=== PATIENT | female | born 1995 | race Caucasian/White ===

== ENCOUNTER 2020-05-14 13:03 | Emergency (ER) | payer BC, MEDICAID, OTHER ==
[2020-05-14] MEDS ORDERED: Lidocaine 2% with EPINEPHrine 1:100,000 20 ML MDV INJECT ONE ×2 (13:20→14:37)
[2020-05-14] MEDS ORDERED: Bupivacaine 0.5% 30 ML SDV INJECT PRN ×2 (13:20→14:37)
[2020-05-14] MEDS ORDERED: Ondansetron 4 MG/2 ML SDV IV ONE (13:26)
[2020-05-14] MEDS ORDERED: Morphine 4 MG/ML Syringe IVPUSH ONE (13:27)
[2020-05-14] MEDS ORDERED: Sodium Chloride 0.9% 10 ML Syringe FLUSH PRN (13:27)
[2020-05-14] MEDS ORDERED: Clindamycin Phosphate in D5W 600 MG in Premix Bag 1 BAG IV ONE ×2 (13:28)
--- NOTE | 2020-05-14 13:36 | EDM.PDOC ---
ED HPI GENERAL MEDICAL PROBLEM - General Chief Complaint: General Stated Complaint: TOOTH PAIN Time Seen by Provider: 05/14/20 13:15 Source of Information: Reports: Patient History Limitations: Reports: No Limitations - History of Present Illness INITIAL COMMENTS - FREE TEXT/NARRATIVE: Patient comes emergency department today with complaints of concerns for a dental abscess. For the past 2 months she has had pain to the right lower jaw. She has not seen a dentist. She has not been on any antibiotics. Yesterday she noticed that she had quite a bit of swelling on the lateral aspect of the angle of her jaw as well as under her jaw. Today she notes that it is difficult for her to open her mouth. She has no difficulty swallowing. No difficulty breathing. She does have home drainage actually coming from the right lower molar. Is a very foul-smelling purulent discharge she reports. No fever no chills. No nausea no vomiting. No cough or congestion. No Covid exposure no Covid symptoms. Treatments HATCH TENDER: Reports: NSAIDS Right Face/Facial Pain Score (Numeric/FACES): 7 - Related Data Allergies Allergy/AdvReac Type Severity Reaction Status Date / Time amoxicillin Allergy Rash Verified 05/14/20 13:22 Penicillins Allergy Hives Verified 05/14/20 13:22 Sulfa (Sulfonamide Allergy Rash Verified 05/14/20 13:22 Antibiotics) Past Medical History - Past Surgical History HEENT Surgical History: Reports: Oral Surgery Social & Family History - Caffeine Use Caffeine Use: Reports: Coffee, Soda ED ROS GENERAL - Review of Systems Review Of Systems: Comprehensive ROS is negative, except as noted in HPI. ED EXAM, GENERAL - Physical Exam Exam: See Below Exam Limited By: No Limitations General Appearance: Alert, WD/WN, No Apparent Distress Ears: Normal External Exam, Normal TMs Nose: Normal Inspection, Normal Mucosa Throat/Mouth: Normal Inspection, Normal Lips, Normal Gums, Normal Oropharynx, Normal Voice, Other (No drainage or erythema or swelling in the oropharynx. She does have some trismus. The area under the tongue is soft not erythematous or tender. There is no stridor there is no occlusion of the pharynx. There is no drooling.) Head: Facial Swelling (Below the right angle of jaw there is an aproximate grape sized lump that is quite tender to touch. ) Neck: Other (See above just below the right angle of the jaw. ) Respiratory/Chest: No Respiratory Distress, Lungs Clear, Chest Non-Tender Cardiovascular: Normal Peripheral Pulses, Regular Rate, Rhythm Neurological: Alert, Oriented Psychiatric: Normal Affect, Normal Mood Skin Exam: Warm, Dry, Intact, Normal Color Course - Vital Signs Last Recorded V/S: Last Vital Signs Temp 99.1 F 05/14/20 13:15 Pulse 90 05/14/20 13:15 Resp 16 05/14/20 13:15 BP 136/86 05/14/20 13:15 Pulse Ox 99 05/14/20 13:15 - Orders/Labs/Meds Orders: Active Orders 24 hr Category Date Time Status Peripheral IV Insertion Adult [OM.PC] Stat Oth 05/14/20 13:26 Ordered Labs: Laboratory Tests 05/14/20 05/14/20 05/14/20 Range/Units 13:33 13:33 13:33 WBC 6.0 (4.0-10.0) x10^3/uL RBC 4.20 (4.00-5.50) x10^6/uL Hgb 13.0 (12.0-16.0) g/dL Hct 39.6 (33.0-47.0) % MCV 94.3 H (78.0-93.0) fL MCH 31.0 (26.0-32.0) pg MCHC 32.8 (32.0-36.0) g/dL RDW Coeff of Perfecto 13.5 (10.0-15.0) % Plt Count 215 (130-400) x10^3/uL Neut % (Auto) 57.8 (50.0-80.0) % Lymph % (Auto) 19.5 L (25.0-50.0) % Ray % (Auto) 21.5 H (2.0-11.0) % Eos % (Auto) 0.7 (0.0-4.0) % Baso % (Auto) 0.5 (0.2-1.2) % Sodium 141 (136-145) mmol/L Potassium 4.2 (3.5-5.1) mmol/L Chloride 104 (98-107) mmol/L Carbon Dioxide 29 (21-32) mmol/L Anion Gap 12.2 (5-15) mmol/L BUN 4 L (7-18) mg/dL Creatinine 0.6 (0.55-1.02) mg/dL Est Cr Clr Drug Dosing 134.18 mL/min Estimated GFR (MDRD) > 60 Glucose 79 (74-106) mg/dL Lactic Acid 1.1 (0.4-2.0) mmol/L Calcium 8.7 (8.5-10.1) mg/dL Meds: Medications Discontinued Medications Generic Name Dose Route Start Last Admin Trade Name Freq PRN Reason Stop Dose Admin Hydrocodone Bitart/Acetaminophen 1 packet 05/14/20 14:31 05/14/20 14:41 Take Home: Acetam/Hydrocodon 325-5 Mg, 5 Pack PO 05/14/20 14:32 1 packet ONETIME ONE Administration Bupivacaine HCl 30 ml 05/14/20 13:20 Marcaine 0.5% INJECT ASDIRECTED PRN Other Bupivacaine HCl 30 ml 05/14/20 14:37 05/14/20 14:58 Marcaine 0.5% INJECT 4 ml ASDIRECTED PRN Administration Other Clindamycin HCl 1 packet 05/14/20 14:26 05/14/20 14:41 Take Home: Clindamycin Hcl 150 Mg, 6 Cap Pack PO 05/14/20 14:27 1 packet ONETIME ONE Administration Clindamycin Phosphate 600 mg/ 50 mls @ 150 mls/hr 05/14/20 13:28 05/14/20 14:01 Premix IV 05/14/20 13:47 150 mls/hr ONETIME ONE Administration Lidocaine/Epinephrine 20 ml 05/14/20 13:20 Xylocaine 2% With Epinephrine 1:100,000 INJECT 05/14/20 13:21 ONETIME ONE Lidocaine/Epinephrine 20 ml 05/14/20 14:37 05/14/20 14:58 Xylocaine 2% With Epinephrine 1:100,000 INJECT 05/14/20 14:38 4 ml ONETIME ONE Administration Morphine Sulfate 4 mg 05/14/20 13:27 05/14/20 13:40 Morphine IVPUSH 05/14/20 13:28 4 mg ONETIME ONE Administration Ondansetron HCl 4 mg 05/14/20 13:26 05/14/20 13:38 Zofran IV 05/14/20 13:27 4 mg ONETIME ONE Administration Sodium Chloride 10 ml 05/14/20 13:27 Saline Flush FLUSH ASDIRECTED PRN Keep Vein Open - Radiology Interpretation Free Text/Narrative:: CT scan of the soft tissue with contrast per radiology shows stranding in the right submandibular space right of midline with reactive lymph nodes. Findings are most consistent with cellulitis. No evidence of abscess. Sparing of the sublingual space. - Re-Assessments/Exams Free Text/Narrative Re-Assessment/Exam: 05/14/20 14:22 Initially was given an IV for IV contrast for the CT scan of the soft tissues of the neck. Clindamycin 600 mg IV piggyback. Zofran 4 mg IV push prophylactic nausea. Morphine 4 mg IV push for pain. 05/14/20 14:23 Labs with a WBC of 6.0 hemoglobin of 13 and normal platelet count. Lactic acid normal at 1.1. CMP is unremarkable as well. I reviewed the CT scan of the soft tissue of the neck with contrast that this is clearly just a cellulitis most likely caused from dentition. There is no sign of abscess. There is no airway compromise. I did offer a dental block for pain relief. After risks and benefits were verbally explained to the patient. She gave consent. 2% lidocaine with epinephrine and 0.5% bupivacaine was mixed in a 50-50 fashion. After the landmarks were identified for an inferior right-sided alveolar block. Approximately 6 mils of the above solution was instilled in the area of the right inferior alveolar block. With negative blood withdrawn prior to instillation. Tolerated the procedure well. No bleeding. She had quite a bit of improvement of the pain on her face. No complications. I discussed with her that if she had any change in her ability to swallow breathe or her area of induration is getting worse she is to recheck. She needs to see a dentition as soon as possible. She is comfortable with this plan and her questions were answered. Departure - Departure Time of Disposition: 14:24 Disposition: Home, Self-Care 01 Clinical Impression: Cellulitis of submandibular region - Discharge Information Instructions: Antibiotic Medicine, Adult, [id number], Cellulitis, Adult, [id number], Probiotics Referrals: Juani Oliveira MD [Primary Care Provider] - Forms: ED Department Discharge Additional Instructions: Tylenol and or Ibuprofen as needed for pain fever discomfort. Push oral fluids over the next few days. If pain not controlled with above. [place] 1 tablet every 4-6 hrs as needed for pain. Caution sedation. Do not take with Tylenol as this medication has Tylenol in it. Starter pack given in the ED. Start a pro-biotic OTC as well as yogurt with live cultures due to the anti- biotic. Clindamycin 300mg by mouth 4 times a day for the next 7 days. Starter pack given in the ED and RX sent to the pharmacy. See a dentist [place]. Recheck in the ED if new or worsening symptoms especially if unable to swallow drooling or difficulty breathing. Sepsis Event Note (ED) - Evaluation Sepsis Screening Result: No Definite Risk - Focused Exam Vital Signs: Vital Signs Temp Pulse Resp BP Pulse Ox 05/14/20 13:15 99.1 F 90 16 136/86 99 - My Orders Last 24 Hours: My Active Orders 05/14/20 13:26 Peripheral IV Insertion Adult [OM.PC] Stat - Assessment/Plan Last 24 Hours: My Active Orders 05/14/20 13:26 Peripheral IV Insertion Adult [OM.PC] Stat
[2020-05-14 13:53] LABS: ANION GAP 12.2 mmol/L (5-15); CHLORIDE,CL 104 mmol/L (98-107); SODIUM,NA 141 mmol/L (136-145)
--- NOTE | 2020-05-14 14:22 | CT ---
[id number] CT/CT Neck Soft Tissue W IV Exam: CT Neck Soft Tissue W IV Indication:RL JAW ABSCESS, QUESTION OSTEO. Comparison: No prior imaging for comparison. Discussion: Edema in the soft tissues of the submandibular region on the right. There are numerous reactive appearing level 2 lymph nodes, largest measuring 9 mm in short axis diameter. No abscess. No evidence of osteomyelitis. There is tearing of the sublingual space. Mucosal the nasopharynx, oropharynx, hypopharynx are unremarkable. Parotid, some annular, and thyroid glands are unremarkable. Impression: Stranding in the submandibular space right of midline with reactive lymph nodes. Findings are most consistent with cellulitis. No evidence of abscess. Sparing of the sublingual space. No other significant abnormality. Reinaldo Sen MD 05/14/20 0596 Thank you for allowing us to participate in the care of your patient.
[2020-05-14] MEDS ORDERED: Take Home: Clindamycin HCl 150 MG Cap, 6 Cap Pack PO ONE (14:26)
[2020-05-14] MEDS ORDERED: Take Home: Acetaminophen/HYDROcodone 325-5 MG, 5 Tab Pack PO ONE (14:31)
== END 2020-05-14 14:55 | disposition home or self-care (01) ==
LOC: VM.ED 13:03
DX: K12.2 Cellulitis and abscess of mouth (principal); Z88.0 Allergy status to penicillin; Z88.2 Allergy status to sulfonamides
CPT/HCPCS: 64400; 70491; 80048; 83605; 85025; 96365; 96375; 99283-25; 99284; A9270-GY; J2270; J2405; J3490

== ENCOUNTER 2020-09-27 08:13 | Inpatient (IN) | payer MEDICAID ==
[2020-09-27] MEDS ORDERED: Lactated Ringers 1,000 ML IV ONE (08:28)
[2020-09-27] MEDS ORDERED: Ondansetron 4 MG/2 ML SDV IVPUSH ONE (08:28)
--- NOTE | 2020-09-27 08:30 | EDM.PDOC ---
ED HPI GENERAL MEDICAL PROBLEM - General Stated Complaint: chest pain Time Seen by Provider: 09/27/20 08:19 Source of Information: Reports: Patient - History of Present Illness INITIAL COMMENTS - FREE TEXT/NARRATIVE: Rebecca is a 25 y/o female who is brought to the ER via POV by her dad with complaints of pain in her chest and nausea & vomiting. She has not felt well and was sick all day yesterday. Cannot really eat or drink anything. Cannot remember when she last voided. Has had a few small episodes of diarrhea. She has [place] out [place] the [place] in the [place]. No fever. She has not taken anything. Denies recent ETOH use. Middle Chest Pain Score (Numeric/FACES): 7 - Related Data Allergies Allergy/AdvReac Type Severity Reaction Status Date / Time amoxicillin Allergy Rash Verified 09/27/20 08:56 Penicillins Allergy Hives Verified 09/27/20 08:56 Sulfa (Sulfonamide Allergy Rash Verified 09/27/20 08:56 Antibiotics) Home Meds: Home Meds hydrOXYzine HCL [Hydroxyzine HCl] 25 mg PO Q6H PRN 09/27/20 [History] Past Medical History - Past Surgical History HEENT Surgical History: Reports: Oral Surgery Social & Family History - Caffeine Use Caffeine Use: Reports: Coffee, Soda Review of Systems - Review of Systems Review Of Systems: See Below Constitutional: Reports: Weakness Eyes: Reports: No Symptoms Ears: Reports: No Symptoms Nose: Reports: No Symptoms Mouth/Throat: Reports: No Symptoms Respiratory: Reports: No Symptoms Cardiovascular: Reports: Chest Pain GI/Abdominal: Reports: Decreased Appetite, Diarrhea, Nausea Genitourinary: Reports: No Symptoms Musculoskeletal: Reports: No Symptoms Skin: Reports: No Symptoms Neurological: Reports: Headache Psychiatric: Reports: No Symptoms ED EXAM, GENERAL - Physical Exam Exam: See Below General Appearance: Alert, WD/WN, No Apparent Distress (Adult female, appears to not feel well.) Eye Exam: Bilateral Eye: PERRL Ears: Normal Canal, Hearing Grossly Normal Nose: Normal Inspection Throat/Mouth: Normal Inspection, Normal Oropharynx, Normal Voice Head: Atraumatic, Normocephalic Neck: Normal Inspection Respiratory/Chest: No Respiratory Distress, Lungs Clear, Chest Non-Tender Cardiovascular: Normal Peripheral Pulses, Regular Rate, Rhythm GI/Abdominal: Normal Bowel Sounds, Soft (Female) Exam: Deferred Rectal (Female) Exam: Deferred Back Exam: Normal Inspection Extremities: Normal Inspection, Normal Range of Motion, Normal Capillary Refill Neurological: Alert, Oriented, CN II-XII Intact Psychiatric: Normal Affect, Normal Mood Skin Exam: Warm, Dry, Intact, Normal Color #1 Interpretation EKG Date: 09/27/20 Time: 08:34 Rhythm: NSR Rate (Beats/Min): 71 [place]: Normal P-Wave: Present QRS: Normal ST-T: Normal QT: Normal EKG Interpretation Comments: Normal Sinus Rhythm Course - Vital Signs Text/Narrative:: 0819 The patient was seen by the AUTO DEALER. Labs ordered. EKG done. She was given a liter of LR and Zofran 4mg IV. 0930 Nausea better. Labs reviewed. Note WBC=13.7, Neuts=83.8%, BUN=5, Middleware Solutions Architect=1.1, Gsvqeed=530, Mg=1.3, T Bili=1.5 AST=97, Fdjyqff=771, Endcgr=6147. Patient now complains of generalized abdominal pain and admits heavy ETOH use 2 days ago. Unable to void. Will continue IV fluids, given pain meds, and obtain CT Abd/Pelvis. 1115 CT results reviewed. Notes Acute Pancreatitis. IV fluids continued. Patient made NPO. Still having abdominal discomfort, but nausea better. Morphine 2mg IVP ordered. 1125 [facility] contacted and case presented. Dr Reddy consulted regarding this patient. Advises admission here due to high census at [facility]. Dr Juani Oliveira contacted since she is patient's PCP and will plan to admit her here to Acute Care. Last Recorded V/S: Last Vital Signs Temp 35.9 C L 09/27/20 08:14 Pulse 68 09/27/20 10:08 Resp 16 09/27/20 10:53 BP 136/97 H 09/27/20 10:53 Pulse Ox 100 09/27/20 10:53 - Orders/Labs/Meds Orders: Active Orders 24 hr Category Date Time Status EKG Documentation Completion [RC] STAT Care 09/27/20 08:27 Active Sodium Chloride 0.9% [Normal Saline] 1,000 ml Med 09/27/20 11:15 Active IV ASDIRECTED Sodium Chloride 0.9% [Saline Flush] Med 09/27/20 08:26 Active 10 ml FLUSH ASDIRECTED PRN Saline Lock Insert [OM.PC] Stat Oth 09/27/20 08:27 Ordered Medication Orders Sodium Chloride (Normal Saline) 1,000 mls @ 150 mls/hr IV ASDIRECTED LEONILA Last Admin: 09/27/20 11:18 Dose: 150 mls/hr Documented by: LAURIE Sodium Chloride (Sodium Chloride 0.9% 10 Ml Syringe) 10 ml FLUSH ASDIRECTED PRN PRN Reason: Keep Vein Open Labs: Laboratory Tests 09/27/20 09/27/20 09/27/20 Range/Units 08:38 08:38 10:00 WBC 13.7 H (4.0-10.0) x10^3/uL RBC 3.60 L (4.00-5.50) x10^6/uL Hgb 13.2 (12.0-16.0) g/dL Hct 36.1 (33.0-47.0) % MCV 100.3 H D (78.0-93.0) fL MCH 36.7 H (26.0-32.0) pg MCHC 36.6 H (32.0-36.0) g/dL RDW Coeff of Perfecto 14.8 (10.0-15.0) % Plt Count 350 D (130-400) x10^3/uL Neut % (Auto) 83.8 H (50.0-80.0) % Lymph % (Auto) 6.4 L (25.0-50.0) % [place] % (Auto) 9.6 (2.0-11.0) % Eos % (Auto) 0.0 (0.0-4.0) % Baso % (Auto) 0.2 (0.2-1.2) % Sodium 138 (136-145) mmol/L Potassium 3.6 (3.5-5.1) mmol/L Chloride 100 (98-107) mmol/L Carbon Dioxide 23 (21-32) mmol/L Anion Gap 18.6 H (5-15) mmol/L BUN 5 L (7-18) mg/dL Creatinine 1.1 H (0.55-1.02) mg/dL Est Cr Clr Drug Dosing TNP Estimated GFR (MDRD) > 60 Glucose 145 H (70-99) mg/dL Calcium 8.6 (8.5-10.1) mg/dL Corrected Calcium 8.6 (8.5-10.1) mg/dL Magnesium 1.3 L (1.8-2.4) mg/dL Total Bilirubin 1.5 H (0.2-1.0) mg/dL AST 97 H (15-37) U/L ALT 50 (14-59) U/L Alkaline Phosphatase 127 H (46-116) U/L Troponin I High Sens 6 (<=51) ng/L C-Reactive Protein 1.0 H (<=0.9) mg/dL Total Protein 7.3 (6.4-8.2) g/dL Albumin 4.0 (3.4-5.0) g/dL Globulin 3.3 Albumin/Globulin Ratio 1.21 Amylase 179 H (25-115) U/L Lipase 2949 H (73-393) U/L Urine Color Noemi H (YELLOW) Urine Appearance Cloudy H (CLEAR) Urine pH 6.5 (5.0-8.0) Ur Specific [place] 1.025 Urine Protein 100 H (NEGATIVE) mg/dL Urine Glucose (UA) Negative (NEGATIVE) mg/dL Urine Ketones 40 H (NEGATIVE) mg/dL Urine Occult Blood Negative (NEGATIVE) Urine Nitrite Negative (NEGATIVE) Urine Bilirubin Small H (NEGATIVE) Urine Urobilinogen 0.2 (0.2) EU/dL Ur Leukocyte Esterase Negative (NEGATIVE) U Hyaline Cast (Auto) Few Urine RBC 0-5 (NOT SEEN) /HPF Urine WBC 0-5 (NOT SEEN) /HPF Ur Squamous Epith Cells Many H (NOT SEEN) /HPF Ur Transition Epith Cell Occasional H (NOT SEEN) /HPF Amorphous Sediment Moderate Urine Bacteria Few H (NOT SEEN) /HPF Granular Casts (Auto) Moderate Urine Mucus Many H (NOT SEEN) /LPF Urine HCG, Qual (NEGATIVE) 09/27/20 Range/Units 10:00 WBC (4.0-10.0) x10^3/uL RBC (4.00-5.50) x10^6/uL Hgb (12.0-16.0) g/dL Hct (33.0-47.0) % MCV (78.0-93.0) fL MCH (26.0-32.0) pg MCHC (32.0-36.0) g/dL RDW Coeff of Perfecto (10.0-15.0) % Plt Count (130-400) x10^3/uL Neut % (Auto) (50.0-80.0) % Lymph % (Auto) (25.0-50.0) % [place] % (Auto) (2.0-11.0) % Eos % (Auto) (0.0-4.0) % Baso % (Auto) (0.2-1.2) % Sodium (136-145) mmol/L Potassium (3.5-5.1) mmol/L Chloride (98-107) mmol/L Carbon Dioxide (21-32) mmol/L Anion Gap (5-15) mmol/L BUN (7-18) mg/dL Creatinine (0.55-1.02) mg/dL Est Cr Clr Drug Dosing Estimated GFR (MDRD) Glucose (70-99) mg/dL Calcium (8.5-10.1) mg/dL Corrected Calcium (8.5-10.1) mg/dL Magnesium (1.8-2.4) mg/dL Total Bilirubin (0.2-1.0) mg/dL AST (15-37) U/L ALT (14-59) U/L Alkaline Phosphatase (46-116) U/L Troponin I High Sens (<=51) ng/L C-Reactive Protein (<=0.9) mg/dL Total Protein (6.4-8.2) g/dL Albumin (3.4-5.0) g/dL Globulin Albumin/Globulin Ratio Amylase (25-115) U/L Lipase (73-393) U/L Urine Color (YELLOW) Urine Appearance (CLEAR) Urine pH (5.0-8.0) Ur Specific [place] Urine Protein (NEGATIVE) mg/dL Urine Glucose (UA) (NEGATIVE) mg/dL Urine Ketones (NEGATIVE) mg/dL Urine Occult Blood (NEGATIVE) Urine Nitrite (NEGATIVE) Urine Bilirubin (NEGATIVE) Urine Urobilinogen (0.2) EU/dL Ur Leukocyte Esterase (NEGATIVE) U Hyaline Cast (Auto) Urine RBC (NOT SEEN) /HPF Urine WBC (NOT SEEN) /HPF Ur Squamous Epith Cells (NOT SEEN) /HPF Ur Transition Epith Cell (NOT SEEN) /HPF Amorphous Sediment Urine Bacteria (NOT SEEN) /HPF Granular Casts (Auto) Urine Mucus (NOT SEEN) /LPF Urine HCG, Qual Negative (NEGATIVE) Meds: Medications Generic Name Dose Route Start Last Admin Trade Name Jonel PRN Reason Stop Dose Admin Sodium Chloride 1,000 mls @ 150 mls/hr 09/27/20 11:15 09/27/20 11:18 Normal Saline IV 150 mls/hr ASDIRECTED LEONILA Administration Sodium Chloride 10 ml 09/27/20 08:26 Sodium Chloride 0.9% 10 Ml Syringe FLUSH ASDIRECTED PRN Keep Vein Open Discontinued Medications Generic Name Dose Route Start Last Admin Trade Name Jonel PRN Reason Stop Dose Admin Fentanyl 100 mcg 09/27/20 09:33 09/27/20 10:06 Fentanyl 100 Mcg/2 Ml Sdv IVPUSH 09/27/20 09:34 100 mcg ONETIME ONE Administration Lactated Ringer's 1,000 mls @ 999 mls/hr 09/27/20 08:28 09/27/20 08:45 Ringers, Lactated IV 09/27/20 09:28 999 mls/hr ONETIME ONE Administration Sodium Chloride 1,000 mls @ 999 mls/hr 09/27/20 09:33 09/27/20 10:05 Normal Saline IV 09/27/20 10:33 999 mls/hr ONETIME ONE Administration Iopamidol 100 ml 09/27/20 09:40 09/27/20 10:06 Iopamidol 612 Mg/Ml 100 Ml Bottle IVPUSH 09/27/20 09:41 100 ml ONETIME ONE Administration Morphine Sulfate 2 mg 09/27/20 11:10 09/27/20 11:19 Morphine 2 Mg/Ml Syringe IVPUSH 09/27/20 11:11 2 mg ONETIME ONE Administration Ondansetron HCl 4 mg 09/27/20 08:28 09/27/20 08:46 Ondansetron 4 Mg/2 Ml Sdv IVPUSH 09/27/20 08:29 4 mg ONETIME ONE Administration - Radiology Interpretation Free Text/Narrative:: CT Abd/Pelvis W=Acute pancreatitis (See final report) Departure - Departure Time of Disposition: 11:56 Disposition: Admitted As Inpatient 66 Condition: Good Clinical Impression: Acute pancreatitis Qualifiers: Pancreatitis type: unspecified pancreatitis type Acute pancreatitis complication: unspecified Qualified Code(s): K85.90 - Acute pancreatitis without necrosis or infection, unspecified - Discharge Information Additional Instructions: -Dr Juani Oliveira will admit the patient to assume care and admit Sepsis Event Note (ED) - Focused Exam Vital Signs: Vital Signs Temp Pulse Resp BP Pulse Ox 09/27/20 10:53 16 136/97 H 100 09/27/20 10:08 68 14 161/108 H 98 09/27/20 08:14 35.9 C L 85 20 150/99 H 100 - My Orders Last 24 Hours: My Active Orders 09/27/20 08:26 Sodium Chloride 0.9% [Saline Flush] 10 ml FLUSH ASDIRECTED PRN 09/27/20 08:27 EKG Documentation Completion [RC] STAT Saline Lock Insert [OM.PC] Stat 09/27/20 11:15 Sodium Chloride 0.9% [Normal Saline] 1,000 ml IV ASDIRECTED - Assessment/Plan Last 24 Hours: My Active Orders 09/27/20 08:26 Sodium Chloride 0.9% [Saline Flush] 10 ml FLUSH ASDIRECTED PRN 09/27/20 08:27 EKG Documentation Completion [RC] STAT Saline Lock Insert [OM.PC] Stat 09/27/20 11:15 Sodium Chloride 0.9% [Normal Saline] 1,000 ml IV ASDIRECTED Assessment:: 1)Acute Pancreatitis Plan: -Admit to Acute Care
[2020-09-27 09:08] LABS: ANION GAP 18.6 mmol/L (5-15); CHLORIDE,CL 100 mmol/L (98-107); SODIUM,NA 138 mmol/L (136-145)
[2020-09-27] MEDS ORDERED: fentaNYL 100 MCG/2 ML SDV IVPUSH ONE (09:33)
[2020-09-27] MEDS ORDERED: Sodium Chloride 0.9% 1,000 ML IV ONE (09:33)
[2020-09-27] MEDS ORDERED: Iopamidol 612 MG/ML 100 ML Bottle IVPUSH ONE (09:40)
--- NOTE | 2020-09-27 11:02 | CT ---
[id number] CT/CT Abdomen Pelvis W IV EXAM: ABDOMEN AND PELVIS CT WITH CONTRAST INDICATION: ABDOMEN PAIN, ELEVATED LIPASE AND WBC. UPPER ABDOMEN COMPARISON: None. DISCUSSION: The pancreas is mildly edematous with surrounding infiltrating fluid in the retroperitoneum and extending into the omentum compatible with acute pancreatitis. There is a small volume of free fluid in the pelvis. No drainable fluid collection, necrosis or other evident complication. No biliary duct dilation is identified by CT. the gallbladder is normal in appearance. Ultrasound may be useful in the context of pancreatitis to further exclude cholelithiasis. The liver is enlarged measuring up to 22 cm craniocaudal and demonstrates at least moderate diffuse steatosis. There are a few areas of peripheral hypointensity within the medial segment of the left lobe along the falciform ligament and in the inferior right lobe which may represent focal severe fatty infiltration, but are nonspecific. A mild thick-walled appearance of the colon likely is from incomplete distention, but could be seen with early colitis. There are few scattered left ovarian follicles. The uterus and ovaries are otherwise unremarkable. 25 x 15 mm partially imaged cystic structure along the right aspect of the vaginal introitus. The spleen, adrenal glands, kidneys, small bowel, and the appendix are normal in appearance. No adenopathy or free air. Mild chronic appearing L1 compression fracture. The osseous structures are otherwise unremarkable. IMPRESSION: 1. Acute pancreatitis with infiltrating fluid/edema in the retroperitoneum. No drainable fluid collection, pancreatic necrosis or other evident complication. 2. The liver is enlarged and demonstrates moderate steatosis. Jesus Perry MD 09/27/20 1022 Thank you for allowing us to participate in the care of your patient.
[2020-09-27] MEDS ORDERED: Morphine 2 MG/ML SYRINGE IVPUSH ONE (11:10)
[2020-09-27] MEDS ORDERED: Sodium Chloride 0.9% 1,000 ML IV SCH (11:15)
--- NOTE | 2020-09-27 12:23 | PCM.HP.2 ---
H&P History of Present Illness - General Date of Service: 09/27/20 Admit Problem/Dx: Admission Diagnosis/Problem Admission Diagnosis/Problem Acute pancreatitis Source of Information: Patient History Limitations: Reports: No Limitations - History of Present Illness Initial Comments - Free Text/Narative: Ms. Canchola is a 25 yo female with PMH of bulimia, anxiety, and depression who presented to the ER for evaluation of abdominal pain that started last night. First she had some bloating yesterday, which is not uncommon for her. Then last night she started having epigastric pain radiating into the LUQ/left flank. Constant and worsening. Did not get much sleep at all. Also had nausea and vomiting associated with this. Has had chills but no fever. Also has diarrhea but that is also chronic for her. Has never had pancreatitis in the past. Denies any history of RUQ pain with eating or any s/s of gall bladder pathology. Did drink 2-3 shots and 2 beers 2 nights before this started. Drinks periodically, mainly on weekends. Does not drink alcohol daily. Denies any tobacco or illicit drug use. Has not had any recurrence of self-induced vomiting. She does feel the zofran helped with her nausea. The pain medication helped to make her feel relaxed but she is not sure if it actually helped her pain or not. Middle Chest Pain Score (Numeric/FACES): 7 - Related Data Allergies/Adverse Reactions: Allergies Allergy/AdvReac Type Severity Reaction Status Date / Time amoxicillin Allergy Rash Verified 09/27/20 08:56 Penicillins Allergy Hives Verified 09/27/20 08:56 Sulfa (Sulfonamide Allergy Rash Verified 09/27/20 08:56 Antibiotics) Home Medications: Home Meds hydrOXYzine HCL [Hydroxyzine HCl] 25 mg PO Q6H PRN 09/27/20 [History] Past Medical History HEENT History: Reports: None Cardiovascular History: Reports: None Respiratory History: Reports: None Gastrointestinal History: Reports: None Genitourinary History: Reports: None Musculoskeletal History: Reports: None Neurological History: Reports: None Psychiatric History: Reports: Anxiety, Depression, Eating Disorders Endocrine/Metabolic History: Reports: None Hematologic History: Reports: None Oncologic (Cancer) History: Reports: None - Past Surgical History HEENT Surgical History: Reports: Oral Surgery Social & Family History - Family History Cardiac: Reports: Hypertension Psychiatric: Reports: Anxiety - Tobacco Use Tobacco Use Status *Q: Never Tobacco User - Caffeine Use Caffeine Use: Reports: Coffee, Soda - Alcohol Use Alcohol Use History: Yes Alcohol Use in Last Twelve Months: Yes Alcohol Use Frequency: Binges - Recreational Drug Use Recreational Drug Use: No Drug Use in Last 12 Months: No - Living Situation & Occupation Living situation: Reports: Single, with Family (son) Occupation: Unemployed H&P Review of Systems - Review of Systems: Review Of Systems: See Below General: Reports: Chills, Malaise. Denies: Fever HEENT: Reports: No Symptoms Pulmonary: Reports: No Symptoms Cardiovascular: Reports: No Symptoms Gastrointestinal: Reports: Abdominal Pain, Diarrhea, Nausea, Vomiting Genitourinary: Reports: No Symptoms Musculoskeletal: Reports: No Symptoms Skin: Reports: No Symptoms Psychiatric: Reports: Depression, Anxiety. Denies: Suicidal Ideation Neurological: Reports: No Symptoms Exam - Exam Exam: See Below - Vital Signs Vital Signs: Last Vital Signs Temp 36.6 C 09/27/20 11:25 Pulse 75 09/27/20 11:25 Resp 14 09/27/20 11:25 BP 154/96 H 09/27/20 11:25 Pulse Ox 99 09/27/20 11:25 - Exam General: Alert, Oriented, Cooperative, Moderate Distress (due to nausea and ignacia n) HEENT: Conjunctiva Clear, Mucosa Moist & [place], Posterior Pharynx Clear, Pupils Equal, Pupils Reactive, TMs Clear Neck: Supple, Trachea Midline. No: Lymphadenopathy, Thyromegaly Lungs: Clear to Auscultation, Normal Respiratory Effort Cardiovascular: Regular Rate, Regular Rhythm, Normal S1, Normal S2 GI/Abdominal Exam: Normal Bowel Sounds, Soft, Distended, Tender (epigastrium and LUQ). No: Guarding, Rigid, Rebound, Mass Extremities: Normal Inspection, Non-Tender, No Pedal Edema, Normal Capillary Refill Peripheral Pulses: 2+: Radial (L), Radial (R) Skin: Warm, Dry, Intact Neuro Extensive - Mental Status: Alert, Oriented x3 - Patient Data Lab Results Last 24 hrs: Laboratory Results - last 24 hr 09/27/20 09/27/20 09/27/20 Range/Units 08:38 08:38 10:00 WBC 13.7 H (4.0-10.0) x10^3/uL RBC 3.60 L (4.00-5.50) x10^6/uL Hgb 13.2 (12.0-16.0) g/dL Hct 36.1 (33.0-47.0) % MCV 100.3 H D (78.0-93.0) fL MCH 36.7 H (26.0-32.0) pg MCHC 36.6 H (32.0-36.0) g/dL RDW Coeff of Perfecto 14.8 (10.0-15.0) % Plt Count 350 D (130-400) x10^3/uL Neut % (Auto) 83.8 H (50.0-80.0) % Lymph % (Auto) 6.4 L (25.0-50.0) % [place] % (Auto) 9.6 (2.0-11.0) % Eos % (Auto) 0.0 (0.0-4.0) % Baso % (Auto) 0.2 (0.2-1.2) % Sodium 138 (136-145) mmol/L Potassium 3.6 (3.5-5.1) mmol/L Chloride 100 (98-107) mmol/L Carbon Dioxide 23 (21-32) mmol/L Anion Gap 18.6 H (5-15) mmol/L BUN 5 L (7-18) mg/dL Creatinine 1.1 H (0.55-1.02) mg/dL Est Cr Clr Drug Dosing TNP Estimated GFR (MDRD) > 60 Glucose 145 H (70-99) mg/dL Calcium 8.6 (8.5-10.1) mg/dL Corrected Calcium 8.6 (8.5-10.1) mg/dL Magnesium 1.3 L (1.8-2.4) mg/dL Total Bilirubin 1.5 H (0.2-1.0) mg/dL AST 97 H (15-37) U/L ALT 50 (14-59) U/L Alkaline Phosphatase 127 H (46-116) U/L Troponin I High Sens 6 (<=51) ng/L C-Reactive Protein 1.0 H (<=0.9) mg/dL Total Protein 7.3 (6.4-8.2) g/dL Albumin 4.0 (3.4-5.0) g/dL Globulin 3.3 Albumin/Globulin Ratio 1.21 Amylase 179 H (25-115) U/L Lipase 2949 H (73-393) U/L Urine Color Noemi H (YELLOW) Urine Appearance Cloudy H (CLEAR) Urine pH 6.5 (5.0-8.0) Ur Specific [place] 1.025 Urine Protein 100 H (NEGATIVE) mg/dL Urine Glucose (UA) Negative (NEGATIVE) mg/dL Urine Ketones 40 H (NEGATIVE) mg/dL Urine Occult Blood Negative (NEGATIVE) Urine Nitrite Negative (NEGATIVE) Urine Bilirubin Small H (NEGATIVE) Urine Urobilinogen 0.2 (0.2) EU/dL Ur Leukocyte Esterase Negative (NEGATIVE) U Hyaline Cast (Auto) Few Urine RBC 0-5 (NOT SEEN) /HPF Urine WBC 0-5 (NOT SEEN) /HPF Ur Squamous Epith Cells Many H (NOT SEEN) /HPF Ur Transition Epith Cell Occasional H (NOT SEEN) /HPF Amorphous Sediment Moderate Urine Bacteria Few H (NOT SEEN) /HPF Granular Casts (Auto) Moderate Urine Mucus Many H (NOT SEEN) /LPF Urine HCG, Qual (NEGATIVE) 09/27/20 Range/Units 10:00 WBC (4.0-10.0) x10^3/uL RBC (4.00-5.50) x10^6/uL Hgb (12.0-16.0) g/dL Hct (33.0-47.0) % MCV (78.0-93.0) fL MCH (26.0-32.0) pg MCHC (32.0-36.0) g/dL RDW Coeff of Perfecto (10.0-15.0) % Plt Count (130-400) x10^3/uL Neut % (Auto) (50.0-80.0) % Lymph % (Auto) (25.0-50.0) % [place] % (Auto) (2.0-11.0) % Eos % (Auto) (0.0-4.0) % Baso % (Auto) (0.2-1.2) % Sodium (136-145) mmol/L Potassium (3.5-5.1) mmol/L Chloride (98-107) mmol/L Carbon Dioxide (21-32) mmol/L Anion Gap (5-15) mmol/L BUN (7-18) mg/dL Creatinine (0.55-1.02) mg/dL Est Cr Clr Drug Dosing Estimated GFR (MDRD) Glucose (70-99) mg/dL Calcium (8.5-10.1) mg/dL Corrected Calcium (8.5-10.1) mg/dL Magnesium (1.8-2.4) mg/dL Total Bilirubin (0.2-1.0) mg/dL AST (15-37) U/L ALT (14-59) U/L Alkaline Phosphatase (46-116) U/L Troponin I High Sens (<=51) ng/L C-Reactive Protein (<=0.9) mg/dL Total Protein (6.4-8.2) g/dL Albumin (3.4-5.0) g/dL Globulin Albumin/Globulin Ratio Amylase (25-115) U/L Lipase (73-393) U/L Urine Color (YELLOW) Urine Appearance (CLEAR) Urine pH (5.0-8.0) Ur Specific [place] Urine Protein (NEGATIVE) mg/dL Urine Glucose (UA) (NEGATIVE) mg/dL Urine Ketones (NEGATIVE) mg/dL Urine Occult Blood (NEGATIVE) Urine Nitrite (NEGATIVE) Urine Bilirubin (NEGATIVE) Urine Urobilinogen (0.2) EU/dL Ur Leukocyte Esterase (NEGATIVE) U Hyaline Cast (Auto) Urine RBC (NOT SEEN) /HPF Urine WBC (NOT SEEN) /HPF Ur Squamous Epith Cells (NOT SEEN) /HPF Ur Transition Epith Cell (NOT SEEN) /HPF Amorphous Sediment Urine Bacteria (NOT SEEN) /HPF Granular Casts (Auto) Urine Mucus (NOT SEEN) /LPF Urine HCG, Qual Negative (NEGATIVE) Result Diagrams: 09/27/20 08:38 09/27/20 08:38 Sepsis Event Note - Evaluation Sepsis Screening Result: No Definite Risk - Focused Exam Vital Signs: Vital Signs Temp Pulse Resp BP Pulse Ox 09/27/20 11:25 36.6 C 75 14 154/96 H 99 09/27/20 10:53 16 136/97 H 100 09/27/20 10:08 68 14 161/108 H 98 09/27/20 08:14 35.9 C L 85 20 150/99 H 100 *Q Meaningful Use (ADM) - VTE *Q VTE Anticoagulation Contraindications: Med/TX Not Indicated/Need - Problem List (1) Acute pancreatitis SNOMED Code(s): 068281075 ICD Code: K85.90 - ACUTE PANCREATITIS WITHOUT NECROSIS OR INFECTION, UNSP Status: Acute Current Visit: Yes Qualifiers: Pancreatitis type: unspecified pancreatitis type Acute pancreatitis complication: unspecified Qualified Code(s): K85.90 - Acute pancreatitis without necrosis or infection, unspecified (2) Anxiety and depression SNOMED Code(s): 038132778 ICD Code: F41.9 - ANXIETY DISORDER, UNSPECIFIED; F32.9 - MAJOR DEPRESSIVE DISORDER, SINGLE EPISODE, UNSPECIFIED Status: Chronic Current Visit: Yes Problem List Initiated/Reviewed/Updated: Yes Orders Last 24hrs: Active Orders 24 hr Category Date Time Status Patient Status [ADT] Routine ADT 09/27/20 11:52 Active EKG Documentation Completion [RC] STAT Care 09/27/20 08:27 Active Notify Provider Vital Signs [RC] ASDIRECTED Care 09/27/20 12:17 Ordered Oxygen Therapy [RC] PRN Care 09/27/20 12:16 Ordered Up With Assistance [RC] ASDIRECTED Care 09/27/20 12:16 Ordered VTE/DVT Education [RC] PER UNIT ROUTINE Care 09/27/20 12:16 Ordered Vital Signs [RC] Q4H Care 09/27/20 12:16 Ordered Regular Diet [DIET] Diet 09/27/20 Dinner Ordered CBC WITH AUTO DIFF [HEME] Routine Lab 09/28/20 05:11 Ordered COMPREHENSIVE METABOLIC PN,CMP [CHEM] Routine Lab 09/28/20 05:11 Ordered CORONAVIRUS COVID-19 RAPID [MOLEC] Stat Lab 09/27/20 12:06 Received Sodium Chloride 0.9% @ 150 MLS/HR (1000ml) Med 09/27/20 12:30 Ordered Sodium Chloride 0.9% [Normal Saline] 1,000 ml IV ASDIRECTED Sodium Chloride 0.9% [Saline Flush] Med 09/27/20 08:26 Active 10 ml FLUSH ASDIRECTED PRN Anticoagulation Contraindications VTE [AST] Per Unit Oth 09/27/20 12:16 Ordered Routine Saline Lock Insert [OM.PC] Stat Oth 09/27/20 08:27 Ordered Resuscitation Status Routine Resus Stat 09/27/20 12:16 Ordered Medication Orders Sodium Chloride (Normal Saline) 1,000 mls @ 150 mls/hr IV ASDIRECTED LEONILA Sodium Chloride (Sodium Chloride 0.9% 10 Ml Syringe) 10 ml FLUSH ASDIRECTED PRN PRN Reason: Keep Vein Open Assessment/Plan Comment:: 25 yo female admitted with pancreatitis. #1 Pancreatitis - Gall bladder looks ok on CT. Will need u/s outpatient but no evidence for gall stone pancreatitis at this time. - More likely alcohol related. - Normal saline @ 150 cc/hr. - Can eat but with low fat, low residue diet. - Nausea and pain control as ordered. #2 Anxiety and depression - Hold home medications as she does not feel this is helping anyway. - Would hold off on starting any new medications right now given potential for GI side effects. Will reassess on d/c. Patient will be admitted to acute - anticipate admission for 2-3 days but will reassess depending on how she does. IV fluids with low fat/low residue diet. Continue home medications. Code status is full - discussed on admission. VTE prophylaxis will likely be lovenox but will hold off and order tomorrow if she is not going to be d/c'd home. - Mortality Measure Prognosis:: Good
[2020-09-27] MEDS: Ondansetron 4 MG/2 ML SDV IVPUSH PRN ×2 (13:20→20:25)
[2020-09-27] MEDS: Sodium Chloride 0.9% 1,000 ML IV SCH ×2 (13:20→18:56)
[2020-09-27] MEDS: Morphine 4 MG/ML Syringe IVPUSH PRN ×3 (13:26→20:31)
[2020-09-27] MEDS: hydrOXYzine HCl 25 MG Tab PO PRN (18:56)
[2020-09-28] MEDS: Morphine 4 MG/ML Syringe IVPUSH PRN ×2 (00:38→07:52)
[2020-09-28] MEDS: Sodium Chloride 0.9% 10 ML Syringe FLUSH PRN ×2 (00:53→20:19)
[2020-09-28] MEDS: Sodium Chloride 0.9% 1,000 ML IV SCH ×3 (01:40→17:54)
[2020-09-28] MEDS: hydrOXYzine HCl 25 MG Tab PO PRN (06:56)
[2020-09-28 07:09] LABS: ANION GAP 10.3 mmol/L (5-15); CHLORIDE,CL 103 mmol/L (98-107); SODIUM,NA 137 mmol/L (136-145)
[2020-09-28] MEDS ORDERED: GI Cocktail Oral Solution 30 ML PO ONE (08:20)
[2020-09-28] MEDS ORDERED: Pantoprazole 40 MG Vial IVPUSH ONE (08:20)
[2020-09-28] MEDS: Enoxaparin 40 MG/0.4 ML Syringe SUBCUT SCH (09:15)
--- NOTE | 2020-09-28 09:23 | PCM.PN ---
- General Info Date of Service: 09/28/20 Subjective Update: 25 yo female hospital day #2 admitted with pancreatitis. Patient still has significant bloating and discomfort. Has been able to drink water/eat ice chips but not eating/drinking anything else. Some chills again overnight; no fever. Has had nausea but no vomiting. AmadouM[employer]rx is working well for this. Morphine does help her pain somewhat. Not passing much gas. Has not had a BM yet. Feels the pain is radiating up into her chest, which then makes her more worried. - Review of Systems General: Reports: Malaise, Chills HEENT: Reports: No Symptoms Pulmonary: Reports: No Symptoms Cardiovascular: Reports: No Symptoms Gastrointestinal: Reports: Abdominal Pain, Constipation, Decreased Appetite, Nausea Genitourinary: Reports: No Symptoms Musculoskeletal: Reports: No Symptoms Skin: Reports: No Symptoms Neurological: Reports: No Symptoms - Patient Data Vitals - Most Recent: Last Vital Signs Temp 36.7 C 09/28/20 06:22 Pulse 71 09/28/20 06:22 Resp 16 09/28/20 06:22 BP 149/108 H 09/28/20 06:22 Pulse Ox 100 09/28/20 06:22 Weight - Most Recent: 77.111 kg I&O - Last 24 Hours: Intake & Output 09/27/20 09/28/20 09/28/20 22:59 06:59 14:59 Intake Total 1240 300 120 Balance 1240 300 120 Lab Results Last 24 Hours: Laboratory Results - last 24 hr 09/27/20 09/27/20 09/27/20 Range/Units 08:38 10:00 10:00 WBC (4.0-10.0) x10^3/uL RBC (4.00-5.50) x10^6/uL Hgb (12.0-16.0) g/dL Hct (33.0-47.0) % MCV (78.0-93.0) fL MCH (26.0-32.0) pg MCHC (32.0-36.0) g/dL RDW Coeff of Perfecto (10.0-15.0) % Plt Count (130-400) x10^3/uL Neut % (Auto) (50.0-80.0) % Lymph % (Auto) (25.0-50.0) % [place] % (Auto) (2.0-11.0) % Eos % (Auto) (0.0-4.0) % Baso % (Auto) (0.2-1.2) % Sodium (136-145) mmol/L Potassium (3.5-5.1) mmol/L Chloride (98-107) mmol/L Carbon Dioxide (21-32) mmol/L Anion Gap (5-15) mmol/L BUN (7-18) mg/dL Creatinine (0.55-1.02) mg/dL Est Cr Clr Drug Dosing mL/min Estimated GFR (MDRD) Glucose (70-99) mg/dL Calcium (8.5-10.1) mg/dL Corrected Calcium (8.5-10.1) mg/dL Total Bilirubin (0.2-1.0) mg/dL AST (15-37) U/L ALT (14-59) U/L Alkaline Phosphatase (46-116) U/L Total Protein (6.4-8.2) g/dL Albumin (3.4-5.0) g/dL Globulin Albumin/Globulin Ratio Lipase 2949 H (73-393) U/L Urine Color Noemi H (YELLOW) Urine Appearance Cloudy H (CLEAR) Urine pH 6.5 (5.0-8.0) Ur Specific [place]el 1.025 Urine Protein 100 H (NEGATIVE) mg/dL Urine Glucose (UA) Negative (NEGATIVE) mg/dL Urine Ketones 40 H (NEGATIVE) mg/dL Urine Occult Blood Negative (NEGATIVE) Urine Nitrite Negative (NEGATIVE) Urine Bilirubin Small H (NEGATIVE) Urine Urobilinogen 0.2 (0.2) EU/dL Ur Leukocyte Esterase Negative (NEGATIVE) U Hyaline Cast (Auto) Few Urine RBC 0-5 (NOT SEEN) /HPF Urine WBC 0-5 (NOT SEEN) /HPF Ur Squamous Epith Cells Many H (NOT SEEN) /HPF Ur Transition Epith Cell Occasional H (NOT SEEN) /HPF Amorphous Sediment Moderate Urine Bacteria Few H (NOT SEEN) /HPF Granular Casts (Auto) Moderate Urine Mucus Many H (NOT SEEN) /LPF Urine HCG, Qual Negative (NEGATIVE) SARS CoV-2 RNA Rapid SUSANNE (NEGATIVE) 09/27/20 09/28/20 09/28/20 Range/Units 12:06 06:29 06:29 WBC 8.0 (4.0-10.0) x10^3/uL RBC 3.20 L (4.00-5.50) x10^6/uL Hgb 11.4 L D (12.0-16.0) g/dL Hct 33.7 (33.0-47.0) % MCV 105.3 H D (78.0-93.0) fL MCH 35.6 H (26.0-32.0) pg MCHC 33.8 (32.0-36.0) g/dL RDW Coeff of Perfecto 14.7 (10.0-15.0) % Plt Count 199 D (130-400) x10^3/uL Neut % (Auto) 74.7 (50.0-80.0) % Lymph % (Auto) 15.5 L (25.0-50.0) % [place] % (Auto) 8.4 (2.0-11.0) % Eos % (Auto) 1.3 (0.0-4.0) % Baso % (Auto) 0.1 L (0.2-1.2) % Sodium 137 (136-145) mmol/L Potassium 3.3 L (3.5-5.1) mmol/L Chloride 103 (98-107) mmol/L Carbon Dioxide 27 (21-32) mmol/L Anion Gap 10.3 (5-15) mmol/L BUN 3 L (7-18) mg/dL Creatinine 0.7 (0.55-1.02) mg/dL Est Cr Clr Drug Dosing 115.01 mL/min Estimated GFR (MDRD) > 60 Glucose 84 (70-99) mg/dL Calcium 7.5 L (8.5-10.1) mg/dL Corrected Calcium 8.3 L (8.5-10.1) mg/dL Total Bilirubin 1.3 H (0.2-1.0) mg/dL AST 57 H (15-37) U/L ALT 36 (14-59) U/L Alkaline Phosphatase 95 (46-116) U/L Total Protein 6.0 L (6.4-8.2) g/dL Albumin 3.0 L (3.4-5.0) g/dL Globulin 3.0 Albumin/Globulin Ratio 1.00 Lipase (73-393) U/L Urine Color (YELLOW) Urine Appearance (CLEAR) Urine pH (5.0-8.0) Ur Specific [place] Urine Protein (NEGATIVE) mg/dL Urine Glucose (UA) (NEGATIVE) mg/dL Urine Ketones (NEGATIVE) mg/dL Urine Occult Blood (NEGATIVE) Urine Nitrite (NEGATIVE) Urine Bilirubin (NEGATIVE) Urine Urobilinogen (0.2) EU/dL Ur Leukocyte Esterase (NEGATIVE) U Hyaline Cast (Auto) Urine RBC (NOT SEEN) /HPF Urine WBC (NOT SEEN) /HPF Ur Squamous Epith Cells (NOT SEEN) /HPF Ur Transition Epith Cell (NOT SEEN) /HPF Amorphous Sediment Urine Bacteria (NOT SEEN) /HPF Granular Casts (Auto) Urine Mucus (NOT SEEN) /LPF Urine HCG, Qual (NEGATIVE) SARS CoV-2 RNA Rapid SUSANNE Negative (NEGATIVE) Med Orders - Current: Current Medications Enoxaparin Sodium (Enoxaparin 40 Mg/0.4 Ml Syringe) 40 mg SUBCUT Q24H LEONILA Hydroxyzine HCl (Hydroxyzine Hcl 25 Mg Tab) 25 mg PO Q6H PRN PRN Reason: Anxiety Last Admin: 09/28/20 06:56 Dose: 25 mg Documented by: Sodium Chloride (Normal Saline) 1,000 mls @ 150 mls/hr IV ASDIRECTED LEONILA Last Admin: 09/28/20 07:52 Dose: 150 mls/hr Documented by: Morphine Sulfate (Morphine 4 Mg/Ml Syringe) 4 mg IVPUSH Q4H PRN PRN Reason: Pain Last Admin: 09/28/20 07:52 Dose: 4 mg Documented by: Ondansetron HCl (Ondansetron 4 Mg/2 Ml Sdv) 4 mg IVPUSH Q6H PRN PRN Reason: Nausea Last Admin: 09/27/20 20:25 Dose: 4 mg Documented by: Simethicone (Simethicone 80 Mg Tab.Chew) 80 mg PO Q6H PRN PRN Reason: bloating Sodium Chloride (Sodium Chloride 0.9% 10 Ml Syringe) 10 ml FLUSH ASDIRECTED PRN PRN Reason: Keep Vein Open Last Admin: 09/28/20 00:53 Dose: 10 ml Documented by: Discontinued Medications Al Hydroxide/Mg Hydroxide (Gi Cocktail Oral Solution 30 Ml) 30 ml PO ONETIME ONE Stop: 09/28/20 08:21 Fentanyl (Fentanyl 100 Mcg/2 Ml Sdv) 100 mcg IVPUSH ONETIME ONE Stop: 09/27/20 09:34 Last Admin: 09/27/20 10:06 Dose: 100 mcg Documented by: Lactated Ringer's (Ringers, Lactated) 1,000 mls @ 999 mls/hr IV ONETIME ONE Stop: 09/27/20 09:28 Last Admin: 09/27/20 08:45 Dose: 999 mls/hr Documented by: Sodium Chloride (Normal Saline) 1,000 mls @ 999 mls/hr IV ONETIME ONE Stop: 09/27/20 10:33 Last Admin: 09/27/20 10:05 Dose: 999 mls/hr Documented by: Sodium Chloride (Normal Saline) 1,000 mls @ 150 mls/hr IV ASDIRECTED [facility] Last Admin: 09/27/20 11:18 Dose: 150 mls/hr Documented by: Iopamidol (Iopamidol 612 Mg/Ml 100 Ml Bottle) 100 ml IVPUSH ONETIME ONE Stop: 09/27/20 09:41 Last Admin: 09/27/20 10:06 Dose: 100 ml Documented by: Morphine Sulfate (Morphine 2 Mg/Ml Syringe) 2 mg IVPUSH ONETIME ONE Stop: 09/27/20 11:11 Last Admin: 09/27/20 11:19 Dose: 2 mg Documented by: Ondansetron HCl (Ondansetron 4 Mg/2 Ml Sdv) 4 mg IVPUSH ONETIME ONE Stop: 09/27/20 08:29 Last Admin: 09/27/20 08:46 Dose: 4 mg Documented by: Pantoprazole Sodium (Pantoprazole 40 Mg Vial) 40 mg IVPUSH ONETIME ONE Stop: 09/28/20 08:21 - Exam General: Alert, Oriented, Cooperative, Mild Distress HEENT: Mucous Membr. Moist/[place] Neck: Supple, Trachea Midline, No Thyromegaly. No: Lymphadenopathy Lungs: Clear to Auscultation, Normal Respiratory Effort Cardiovascular: Regular Rate, Regular Rhythm, No Murmurs GI/Abdominal Exam: Normal Bowel Sounds, Soft, No Organomegaly, No Mass, Distended, Tender. No: Guarding, Rigid, Rebound Extremities: Normal Inspection, Non-Tender, No Pedal Edema, Normal Capillary Refill Peripheral Pulses: 2+: Radial (L), Radial (R) Skin: Warm, Dry, Intact - Patient Data Lab Results Last 24 hrs: Laboratory Results - last 24 hr 09/27/20 09/27/20 09/27/20 Range/Units 08:38 10:00 10:00 WBC (4.0-10.0) x10^3/uL RBC (4.00-5.50) x10^6/uL Hgb (12.0-16.0) g/dL Hct (33.0-47.0) % MCV (78.0-93.0) fL MCH (26.0-32.0) pg MCHC (32.0-36.0) g/dL RDW Coeff of Perfecto (10.0-15.0) % Plt Count (130-400) x10^3/uL Neut % (Auto) (50.0-80.0) % Lymph % (Auto) (25.0-50.0) % [place] % (Auto) (2.0-11.0) % Eos % (Auto) (0.0-4.0) % Baso % (Auto) (0.2-1.2) % Sodium (136-145) mmol/L Potassium (3.5-5.1) mmol/L Chloride (98-107) mmol/L Carbon Dioxide (21-32) mmol/L Anion Gap (5-15) mmol/L BUN (7-18) mg/dL Creatinine (0.55-1.02) mg/dL Est Cr Clr Drug Dosing mL/min Estimated GFR (MDRD) Glucose (70-99) mg/dL Calcium (8.5-10.1) mg/dL Corrected Calcium (8.5-10.1) mg/dL Total Bilirubin (0.2-1.0) mg/dL AST (15-37) U/L ALT (14-59) U/L Alkaline Phosphatase (46-116) U/L Total Protein (6.4-8.2) g/dL Albumin (3.4-5.0) g/dL Globulin Albumin/Globulin Ratio Lipase 2949 H (73-393) U/L Urine Color Noemi H (YELLOW) Urine Appearance Cloudy H (CLEAR) Urine pH 6.5 (5.0-8.0) Ur Specific [place]el 1.025 Urine Protein 100 H (NEGATIVE) mg/dL Urine Glucose (UA) Negative (NEGATIVE) mg/dL Urine Ketones 40 H (NEGATIVE) mg/dL Urine Occult Blood Negative (NEGATIVE) Urine Nitrite Negative (NEGATIVE) Urine Bilirubin Small H (NEGATIVE) Urine Urobilinogen 0.2 (0.2) EU/dL Ur Leukocyte Esterase Negative (NEGATIVE) U Hyaline Cast (Auto) Few Urine RBC 0-5 (NOT SEEN) /HPF Urine WBC 0-5 (NOT SEEN) /HPF Ur Squamous Epith Cells Many H (NOT SEEN) /HPF Ur Transition Epith Cell Occasional H (NOT SEEN) /HPF Amorphous Sediment Moderate Urine Bacteria Few H (NOT SEEN) /HPF Granular Casts (Auto) Moderate Urine Mucus Many H (NOT SEEN) /LPF Urine HCG, Qual Negative (NEGATIVE) SARS CoV-2 RNA Rapid SUSANNE (NEGATIVE) 09/27/20 09/28/20 09/28/20 Range/Units 12:06 06:29 06:29 WBC 8.0 (4.0-10.0) x10^3/uL RBC 3.20 L (4.00-5.50) x10^6/uL Hgb 11.4 L D (12.0-16.0) g/dL Hct 33.7 (33.0-47.0) % MCV 105.3 H D (78.0-93.0) fL MCH 35.6 H (26.0-32.0) pg MCHC 33.8 (32.0-36.0) g/dL RDW Coeff of Perfecto 14.7 (10.0-15.0) % Plt Count 199 D (130-400) x10^3/uL Neut % (Auto) 74.7 (50.0-80.0) % Lymph % (Auto) 15.5 L (25.0-50.0) % [place] % (Auto) 8.4 (2.0-11.0) % Eos % (Auto) 1.3 (0.0-4.0) % Baso % (Auto) 0.1 L (0.2-1.2) % Sodium 137 (136-145) mmol/L Potassium 3.3 L (3.5-5.1) mmol/L Chloride 103 (98-107) mmol/L Carbon Dioxide 27 (21-32) mmol/L Anion Gap 10.3 (5-15) mmol/L BUN 3 L (7-18) mg/dL Creatinine 0.7 (0.55-1.02) mg/dL Est Cr Clr Drug Dosing 115.01 mL/min Estimated GFR (MDRD) > 60 Glucose 84 (70-99) mg/dL Calcium 7.5 L (8.5-10.1) mg/dL Corrected Calcium 8.3 L (8.5-10.1) mg/dL Total Bilirubin 1.3 H (0.2-1.0) mg/dL AST 57 H (15-37) U/L ALT 36 (14-59) U/L Alkaline Phosphatase 95 (46-116) U/L Total Protein 6.0 L (6.4-8.2) g/dL Albumin 3.0 L (3.4-5.0) g/dL Globulin 3.0 Albumin/Globulin Ratio 1.00 Lipase (73-393) U/L Urine Color (YELLOW) Urine Appearance (CLEAR) Urine pH (5.0-8.0) Ur Specific [place] Urine Protein (NEGATIVE) mg/dL Urine Glucose (UA) (NEGATIVE) mg/dL Urine Ketones (NEGATIVE) mg/dL Urine Occult Blood (NEGATIVE) Urine Nitrite (NEGATIVE) Urine Bilirubin (NEGATIVE) Urine Urobilinogen (0.2) EU/dL Ur Leukocyte Esterase (NEGATIVE) U Hyaline Cast (Auto) Urine RBC (NOT SEEN) /HPF Urine WBC (NOT SEEN) /HPF Ur Squamous Epith Cells (NOT SEEN) /HPF Ur Transition Epith Cell (NOT SEEN) /HPF Amorphous Sediment Urine Bacteria (NOT SEEN) /HPF Granular Casts (Auto) Urine Mucus (NOT SEEN) /LPF Urine HCG, Qual (NEGATIVE) SARS CoV-2 RNA Rapid SUSANNE Negative (NEGATIVE) Result Diagrams: 09/28/20 06:29 09/28/20 06:29 Sepsis Event Note - Evaluation Sepsis Screening Result: No Definite Risk - Focused Exam Vital Signs: Vital Signs Temp Pulse Resp BP Pulse Ox 09/28/20 06:22 36.7 C 71 16 149/108 H 100 09/28/20 00:53 36.9 C 71 16 155/97 H 100 09/27/20 22:00 36.4 C 75 16 147/100 H 100 - Problem List & Annotations (1) Acute pancreatitis SNOMED Code(s): 287787310 Code(s): K85.90 - ACUTE PANCREATITIS WITHOUT NECROSIS OR INFECTION, UNSP Status: Acute Current Visit: Yes Qualifiers: Pancreatitis type: unspecified pancreatitis type Acute pancreatitis complication: unspecified Qualified Code(s): K85.90 - Acute pancreatitis without necrosis or infection, unspecified (2) Gastritis SNOMED Code(s): 5839241 Code(s): K29.70 - GASTRITIS, UNSPECIFIED, WITHOUT BLEEDING Status: Acute Current Visit: Yes Qualifiers: Gastritis type: unspecified gastritis Chronicity: unspecified Gastritis bleeding: without bleeding Qualified Code(s): K29.70 - Gastritis, unspecified, without bleeding (3) Anxiety and depression SNOMED Code(s): 799193198 Code(s): F41.9 - ANXIETY DISORDER, UNSPECIFIED; F32.9 - MAJOR DEPRESSIVE DISORDER, SINGLE EPISODE, UNSPECIFIED Status: Chronic Current Visit: Yes - Problem List Review Problem List Initiated/Reviewed/Updated: Yes - My Orders Last 24 Hours: My Active Orders 09/27/20 12:16 Oxygen Therapy [RC] .PRN Up With Assistance [RC] 08,20 VTE/DVT Education [RC] .PRN Vital Signs [RC] 06,10,14,18,22,02 Anticoagulation Contraindications VTE [AST] Per Unit Routine Resuscitation Status Routine 09/27/20 12:17 Notify Provider Vital Signs [RC] 06,10,14,18,22,02 09/27/20 12:30 Sodium Chloride 0.9% [Normal Saline] 1,000 ml IV ASDIRECTED 09/27/20 12:58 Morphine 4 mg IVPUSH Q4H PRN Ondansetron [Zofran] 4 mg IVPUSH Q6H PRN 09/27/20 Dinner Regular Diet [DIET] 09/27/20 18:45 hydrOXYzine HCL [Atarax] 25 mg PO Q6H PRN 09/28/20 08:20 Simethicone 80 mg PO Q6H PRN 09/28/20 08:30 Enoxaparin [Lovenox] 40 mg SUBCUT Q24H - Assessment Assessment:: 25 yo female hospital day #2 admitted with pancreatitis. Doing about the same today compared to yesterday. - Plan Plan:: 25 yo female admitted with pancreatitis. #1 Pancreatitis #2 Gastritis - Presumed to have some gastritis contributing as well in addition to the pancreatitis. - [place] to be alcohol induced. - Will need outpatient RUQ u/s. - Continue normal saline @ 150 cc/hr. - Can eat but with low fat, low residue diet. - Nausea and pain control as ordered. - Will also do pantoprazole and a GI cocktail today as well as simethicone to see if this will help some of her pain and bloating. #3 Anxiety and depression - Hydroxyzine resumed given increased anxiety symptoms overnight. Patient will remain on acute today - anticipate admission for another 2-3 days but will reassess depending on how she does. Criteria for discharge will be that she can drink enough to stay hydrated. IV fluids with low fat/low residue diet. Continue home medications. Code status is full - discussed on admission. VTE prophylaxis with lovenox.
[2020-09-28] MEDS: Simethicone 80 MG Tab.Chew PO PRN ×2 (09:30→19:55)
[2020-09-28] MEDS: HYDROmorphone 0.5 MG/0.5 ML Syringe IVPUSH PRN ×3 (11:46→20:18)
[2020-09-28] MEDS: Ondansetron 4 MG/2 ML SDV IVPUSH PRN (12:01)
[2020-09-28] MEDS: busPIRone 5 MG Tab PO SCH (19:55)
[2020-09-29] MEDS: HYDROmorphone 0.5 MG/0.5 ML Syringe IVPUSH PRN ×6 (00:14→21:23)
[2020-09-29] MEDS: Sodium Chloride 0.9% 10 ML Syringe FLUSH PRN ×4 (00:15→17:20)
[2020-09-29] MEDS: Ondansetron 4 MG/2 ML SDV IVPUSH PRN ×2 (00:21→13:19)
[2020-09-29] MEDS: Sodium Chloride 0.9% 1,000 ML IV SCH ×2 (06:41→20:16)
[2020-09-29 07:00] LABS: CHLORIDE,CL 100 mmol/L (98-107); SODIUM,NA 134 mmol/L (136-145)
[2020-09-29 07:05] LABS: ANION GAP 14.5 mmol/L (5-15)
[2020-09-29] MEDS: Enoxaparin 40 MG/0.4 ML Syringe SUBCUT SCH (08:15)
[2020-09-29] MEDS: busPIRone 5 MG Tab PO SCH ×2 (08:15→20:17)
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
[2020-09-29] MEDS: Propranolol 20 MG Tab PO SCH ×3 (09:06→20:16)
--- NOTE | 2020-09-29 11:04 | CR ---
[id number] RAD/RAD Abd Flat and Upright 2V EXAM: RAD Abd Flat and Upright 2V INDICATION: ABDOMINAL PAIN,BLOATING,? ILEUS VS CONSTIPATION. COMPARISON: Abdominal pain, bloating. DISCUSSION: Unobstructed bowel gas pattern. No radiographically evident pneumoperitoneum. IMPRESSION: No acute findings in the abdomen. Rogelio Varela DO 09/29/20 1102 Thank you for allowing us to participate in the care of your patient.
[2020-09-30] MEDS: HYDROmorphone 0.5 MG/0.5 ML Syringe IVPUSH PRN ×3 (01:26→09:40)
[2020-09-30 08:00] LABS: CHLORIDE,CL 101 mmol/L (98-107); SODIUM,NA 137 mmol/L (136-145)
[2020-09-30 08:01] LABS: ANION GAP 15.8 mmol/L (5-15)
[2020-09-30] MEDS: Sodium Chloride 0.9% 10 ML Syringe FLUSH PRN ×2 (08:08→09:40)
[2020-09-30] MEDS: Enoxaparin 40 MG/0.4 ML Syringe SUBCUT SCH (08:08)
[2020-09-30] MEDS: Propranolol 20 MG Tab PO SCH ×2 (08:09→11:22)
[2020-09-30] MEDS: busPIRone 5 MG Tab PO SCH (08:09)
--- NOTE | 2020-09-30 13:22 | DISCH ---
ADMITTING DIAGNOSES: 1. Pancreatitis. 2. Generalized anxiety disorder. 3. Major depressive disorder, current, moderate. DISCHARGE DIAGNOSES: 1. Pancreatitis - improved. 2. Generalized anxiety disorder - stable. 3. Major depressive disorder, current, moderate. HISTORY OF PRESENT ILLNESS: A 25-year-old female patient, was admitted to the acute care floor at [facility] on 09/27/2020 for acute pancreatitis secondary to alcohol use. The patient has a history of bulimia, anxiety, depression, who had presented to the ER on 09/27/2020 for the evaluation of her abdominal pain that started the previous night. The patient also had considerable bloating, which was not uncommon for her. She started to have epigastric pain that radiated into the left upper quadrant and left flank area. The pain was progressively getting worse. No history of any right upper quadrant pain. The patient has a history of daily alcohol use. No self-induced vomiting. In the emergency room, the patient was given Zofran and fluids. The patient's admitting lipase level was 2949, amylase 179. UA was negative. Elevated alkaline phosphatase of 127, AST 97, and ALT 50. BRIEF HOSPITAL COURSE: The patient initially was kept n.p.o. to rest her abdomen. The patient was given IV fluids and pain medications. The patient was slowly increased to clear liquids. Her lipase and pain had improved. She did have some bouts of nausea and vomiting. The Zofran gave relief. The patient continued to have anxiety, therefore she was started on BuSpar. The patient was also started on propranolol for her anxiety. The patient remained hemodynamically stable. The patient did not have any fevers. Lipase trending down at the time of discharge. CONSULTATIONS: Case management. DIET: Regular. ACTIVITY: As tolerated. REVIEW OF SYSTEMS: Skin: Negative. Respiratory: Negative. Cardiac: Negative. Abdomen: Negative. Neurologic: Negative. Psychiatric: Complains of significant anxiety with concurrent depression. DISCHARGE PHYSICAL EXAMINATION: Vital Signs: Temperature 97.4, pulse 63, blood pressure 114/78, respiratory rate 18, oxygen saturation 100% on room air. Skin: Intact, warm, and dry. Respiratory: Lungs are clear to auscultation throughout. Cardiac: Regular rate and rhythm. No murmur. Abdomen: Slight tenderness in the epigastric area. Bowel sounds are normoactive x4. No hepatosplenomegaly. Neurologic: The patient is alert. No focal neurological deficits. The patient is oriented x3. Psychiatric: The patient is tearful. Anxious. The patient is somewhat inattentive. Flat affect. No plans of suicidal ideation or homicidal intent. Cognition is intact. DISCHARGE LABORATORY WORK: 1. CBC: White blood cell count 8.5, hemoglobin 11.3, hematocrit 33.2, platelets are 207,000. 2. CMP: Sodium 137, potassium 3.8, chloride 101, CO2 of 24, anion gap 15.8, BUN 3, GFR greater than 60, glucose 89, calcium 8.6, AST 88, ALT 54, alkaline phosphatase 112, protein 6.7. DISCHARGE MEDICATIONS: 1. Ondansetron 4 mg ODT every 6 hours as needed for nausea. 2. Clonazepam 1 mg 3 times a day as needed for anxiety. 3. Seroquel 25 mg p.o. daily at bedtime. ASSESSMENT: 1. Pancreatitis - improving. 2. Generalized anxiety disorder. 3. Major depressive disorder, currently active, moderate. PLAN: A 25-year-old female, patient was admitted to the acute care floor at [facility] for the above diagnoses. The patient will be discharged on Zofran, clonazepam, Seroquel, safety profile and side effects of all medications were thoroughly discussed. We did discuss counseling in depth. We also discussed alcohol abstinence and finding of support system. The patient did verbalize she would like to attend AA. Long discussion was held in regard to the pathophysiology of alcoholic pancreatitis. We also discussed alcohol addiction. The patient states she will follow up with her PCP next week and hopes to get counseling and quit alcohol. The patient was discharged in hemodynamic stable condition. The patient will be scheduled with her PCP next week for a hospital followup. TB: 09/30/2020 12:39:57 MODL: 09/30/2020 13:14:17 /[id number]
== END 2020-09-30 12:03 | disposition home or self-care (01) | DRG 439 ==
LOC: VM.ED 08:13 → VM.MS 11:52
PROVIDERS: ADMIT Family Medicine; ATTEND Family Medicine
DX: K85.20 Alcohol induced acute pancreatitis without necrosis or infection (principal); F32.1 Major depressive disorder, single episode, moderate; K56.7 Ileus, unspecified; F41.1 Generalized anxiety disorder; K29.70 Gastritis, unspecified, without bleeding; Z20.822 Contact with and (suspected) exposure to COVID-19; Z88.1 Allergy status to other antibiotic agents; Z88.0 Allergy status to penicillin; Z88.2 Allergy status to sulfonamides
CPT/HCPCS: 36415; 74019; 74177; 80053; 81001; 81025; 82150; 83690; 83735; 84484; 85025; 86140; 93005; 96374; 96375; 99285-25; A9270-GY; C9113; J1170; J1650; J2270; J2405; J3010; J7030; J7120; Q9967; U0002

== ENCOUNTER 2021-08-04 18:14 | Emergency (ER) | payer MEDICAID ==
[2021-08-04 19:05] LABS: CHLORIDE,CL 105 mmol/L (98-107); SODIUM,NA 144 mmol/L (136-145)
[2021-08-04 19:07] LABS: ANION GAP 19.7 mmol/L (5-15)
[2021-08-04 19:33] LABS: BARBITURATE SCREEN,URINE NEGATIVE (NEGATIVE); BENZODIAZEPINES SCREEN,URINE NEGATIVE (NEGATIVE); BUPRENORPHINE SCREEN,URINE NEGATIVE (NEGATIVE); METHAMPHETAMINE SCREEN, URINE NEGATIVE (NEGATIVE); THC SCREEN,URINE 50 NG/ML POSITIVE (NEGATIVE)
== END 2021-08-04 20:50 | disposition home or self-care (01) ==
LOC: VM.ED 18:14
DX: F10.129 Alcohol abuse with intoxication, unspecified (principal); R45.851 Suicidal ideations; Z88.0 Allergy status to penicillin; Z88.2 Allergy status to sulfonamides; Z72.0 Tobacco use; Y90.8 Blood alcohol level of 240 mg/100 ml or more
CPT/HCPCS: 36415; 80053; 80305-QW; 80307; 81001; 85025; 87086; 99284